=== PATIENT | female | born 1965 | race African-American/Black ===

== ENCOUNTER 2018-05-24 08:56 | Emergency (ER) | payer OTHER ==
[~2018-05-24] VITALS: Ht 144.8 cm; Wt 54.4 kg
[~2018-05-24 08:56] MED LIST: ACETAMINOPHEN-1 EAC1 PO; ADULT LOW DOSE81 MG PO; ANASPAZ0.125 MG; CENTRUM COMPLE1 EACH; DEMEROL50 MG PO; FLAXSEED OIL1000 MG; FLOMAX PO; HYDROCODON-ACE1 EACH; IBUPROFEN 600600 M1 PO; NOHOMEMEDICATIONS; ONDANSETRON HCL4 M2 PO; PERCOCET 5-3251 EACH PO; VITAMIN E400 UNIT; VOLTAREN50 MG PO
[2018-05-24] MEDS ORDERED: MOBIC7.5 MG PO (10:30)
[2018-05-24 10:32] VITALS: BP 139/85
== END 2018-05-24 10:48 | disposition home or self-care (01) ==
LOC: ER 08:56
DX: S16.1XXA Strain of muscle, fascia and tendon at neck level, initial encounter (principal); S80.12XA Contusion of left lower leg, initial encounter; S80.11XA Contusion of right lower leg, initial encounter; R07.89 Other chest pain; M54.5 Low back pain; Z88.8 Allergy status to other drugs, medicaments and biological substances; Z88.1 Allergy status to other antibiotic agents; Z87.442 Personal history of urinary calculi; V89.2XXA Person injured in unspecified motor-vehicle accident, traffic, initial encounter; Y92.89 Other specified places as the place of occurrence of the external cause; Y93.89 Activity, other specified; Y99.8 Other external cause status